=== PATIENT | female | born 1955 | race Caucasian/White ===

== ENCOUNTER 2019-09-09 12:58 | Day surgery (SDC) | payer OTHER ==
[~2019-09-09] VITALS: Ht 160 cm; Wt 86.9 kg
[~2019-09-09 12:58] MED LIST: ASPI81CH; CHOL10002; Daily Multiple1 EACH; ENAL10; FISH1000; Flonase 0.05% N16 GM; HYDCHL25; LORA1; Omeprazole20 M1
--- NOTE | 2019-09-09 14:34 | NUR ---
09/09/19 1434 Sandhya Ba 8ML NACL USED FOR POLYP REMOVAL IN ASCENDING COLON.
== END 2019-09-09 15:09 | disposition home or self-care (01) ==
LOC: ORSCSDS 12:58
PROVIDERS: Student in an Organized Health Care Education/Training Program
PROC: 0DBP8ZX Excision of Rectum, Via Natural or Artificial Opening Endoscopic, Diagnostic (ICD-10-PCS; principal; 2019-09-09 14:15)
PROC: 0DBK8ZX Excision of Ascending Colon, Via Natural or Artificial Opening Endoscopic, Diagnostic (ICD-10-PCS; principal; 2019-09-09 14:15)
DX: R15.0 Incomplete defecation (principal); Z86.010 Personal history of colon polyps; D12.2 Benign neoplasm of ascending colon; K62.1 Rectal polyp; K57.30 Diverticulosis of large intestine without perforation or abscess without bleeding; Z87.891 Personal history of nicotine dependence; I10 Essential (primary) hypertension; Z79.899 Other long term (current) drug therapy; Z79.82 Long term (current) use of aspirin
CPT/HCPCS: 88305; J2704; J7120

== ENCOUNTER → 2020-08-20 | Outpatient (CLI) | payer OTHER | LOC: LAB SHORT 11:28 → LAB 11:28 | DX: R82.998 Other abnormal findings in urine (principal) | CPT/HCPCS: 87086 ==